=== PATIENT | female | born 1985 | race African-American/Black ===

== ENCOUNTER 2016-08-16 18:46 | Emergency (ER) | payer MEDICAID ==
[~2016-08-16] VITALS: Ht 175.3 cm; Wt 76.0 kg
[~2016-08-16 18:46] MED LIST: ALBU05; ALBU6.7H2; HYDR-3511 PO
[2016-08-16] MEDS ORDERED: ALBUTEROL (0.083%) 2.5MG/3ML NEB HHN STA (22:58)
[2016-08-16] MEDS ORDERED: IPRATROPIUM BROMIDE (0.02%) 0.5MG/2.5ML NEB HHN STA (22:58)
[2016-08-16] MEDS ORDERED: PREDNISONE 20MG TABLET PO STA (22:58)
[2016-08-16 23:27] LABS: BASOPHILS % 0.4 % (0.0-2.0); EOSINOPHILS % 0.9 % (0.0-5.0); HEMATOCRIT. 36.9 % (36.0-48.0); HEMOGLOBIN. 12.3 g/dL (12.0-16.0); LYMPHOCYTES % 8.2 % (20.0-50.0); MEAN CORPUSCULAR HEMOGLOBIN 30.9 pg (28.0-32.0); MEAN CORPUSCULAR HGB CONC 33.4 g/dL (31.0-37.0); MEAN CORPUSCULAR VOLUME 92.6 fL (81.0-99.0); MEAN PLATELET VOLUME 10.1 fl (7.4-10.4); NEUTROPHILS % 84.5 % (40.0-76.0); PLATELET 125 x1000/uL (130-400); RED BLOOD CELL COUNT 3.99 mill/uL (4.2-5.4); RED CELL DISTRIBUTION WIDTH 13.4 % (11.6-14.6); WHITE BLOOD COUNT 13.9 x1000/uL (4.5-11.0)
[2016-08-17 00:53] VITALS: BP 130/70
== END 2016-08-17 01:50 | disposition home or self-care (01) ==
LOC: ER 18:47
DX: J45.901 Unspecified asthma with (acute) exacerbation (principal); P38.9 Omphalitis without hemorrhage; Z79.899 Other long term (current) drug therapy; F12.10 Cannabis abuse, uncomplicated
CPT/HCPCS: 36415; 71010; 85025; 94640; 99285; J7512; J7611; Z7610

== ENCOUNTER 2018-11-30 11:39 | Emergency (ER) | payer MEDICAID, OTHER ==
[~2018-11-30] VITALS: Ht 170.2 cm; Wt 96.0 kg
[~2018-11-30 11:39] MED LIST changes: -ALBU6.7H2; +ALBU6.7H9; -HYDR-3511 PO; +HYDR-3512 PO
[2018-11-30] MEDS ORDERED: ACETAMINOPHEN 325MG TABLET PO STA (14:54)
[2018-11-30] MEDS ORDERED: SODIUM CHLORIDE 0.9% 1,000 ML IV ONE (14:54)
[2018-11-30 15:51] LABS: BASOPHILS % 0.9 % (0.0-2.0); EOSINOPHILS % 1.3 % (0.0-5.0); HEMATOCRIT. 40.3 % (36.0-48.0); HEMOGLOBIN. 13.4 g/dL (12.0-16.0); LYMPHOCYTES % 18.1 % (20.0-50.0); MEAN CORPUSCULAR HEMOGLOBIN 31.6 pg (28.0-32.0); MEAN PLATELET VOLUME 10.4 fl (7.4-10.4); MONOCYTES % 6.5 % (2.0-8.0); NEUTROPHILS % 73.2 % (40.0-76.0); PLATELET 149 x1000/uL (130-400); RED BLOOD CELL COUNT 4.24 mill/uL (4.2-5.4); RED CELL DISTRIBUTION WIDTH 13.4 % (11.6-14.6)
[2018-11-30 15:57] LABS: CHLORIDE 107 mEq/L (98-107)
[2018-11-30 15:58] LABS: PROTHROMBIN TIME 10.1 sec (9.6-11.0)
[2018-11-30 16:00] LABS: HCG SCREEN NEGATIVE
[2018-11-30 16:00] LABS: CLARITY URINE CLEAR (CLEAR); COLOR URINE YELLOW (YELLOW); KETONES URINE NEGATIVE (NEGATIVE); LEUKOCYTE ESTERASE URINE NEGATIVE (NEGATIVE); NITRITE URINE NEGATIVE (NEGATIVE); OCCULT BLOOD URINE 3+ (NEGATIVE); PH URINE 6.5 (4.5-8.0); PROTEIN URINE NEGATIVE (NEGATIVE); SPECIFIC GRAVITY URINE 1.022 (1.005-1.030); UROBILINOGEN URINE 0.2 E.U./dL (0.2-1.0)
[2018-11-30 19:00] VITALS: BP 110/80
== END 2018-11-30 19:00 | disposition home or self-care (01) ==
LOC: ER 12:27
DX: R10.2 Pelvic and perineal pain (principal); D21.9 Benign neoplasm of connective and other soft tissue, unspecified; R11.2 Nausea with vomiting, unspecified; J45.909 Unspecified asthma, uncomplicated; Z90.49 Acquired absence of other specified parts of digestive tract; Z85.43 Personal history of malignant neoplasm of ovary
CPT/HCPCS: 36415; 76830; 76856; 80053; 81003; 81025; 83605; 83690; 84703; 85025; 85610; 96360; 99284; J7030

== ENCOUNTER 2025-01-26 09:18 | Emergency (ER) | payer BC, MEDICAID, OTHER ==
[~2025-01-26] VITALS: Ht 170.2 cm; Wt 89.0 kg
[~2025-01-26 09:18] MED LIST changes: +ALBU6.7H3; -ALBU6.7H9
[2025-01-26 09:26] VITALS: O2SAT 100
[2025-01-26] MEDS: KETOROLAC 30MG/ML VIAL IM ONE (11:12)
[2025-01-26] MEDS ORDERED: T3 PO (11:32)
[2025-01-26] MEDS ORDERED: CYCL10TA21 MT (11:32)
[2025-01-26 11:51] VITALS: BP 128/72; PULSE 60; RESP 18; TEMP 36.6; O2SAT 98
== END 2025-01-26 11:53 | disposition home or self-care (01) ==
LOC: ER 09:18
DX: M54.30 Sciatica, unspecified side (principal); M54.50 Low back pain, unspecified; Z90.49 Acquired absence of other specified parts of digestive tract
CPT/HCPCS: 81025; 96372; 99283; J1885; Z7610 ×2